=== PATIENT | male | born 1965 | race Caucasian/White ===

== ENCOUNTER 2017-09-07 11:20 | Emergency (ER) | payer OTHER ==
[2017-09-07] MEDS ORDERED: Ondansetron INJ* 2 MG/ML VIAL IV ONE (11:38)
[2017-09-07] MEDS ORDERED: Morphine VIAL* 4 MG/ML VIAL (1 ml vial) IV ONE ×2 (11:38→13:54)
[2017-09-07] MEDS ORDERED: Morphine INJ* 2 MG/ML 1 ML SYRINGE (TWO MG - NEW SYRINGE VERSION) ONE (11:58)
[2017-09-07] MEDS ORDERED: ceFAZolin 1 GM VIAL(*) 2 GM in NS 0.9% 100 ML* 100 ML IVPB ONE (12:02)
--- NOTE | 2017-09-07 12:12 | ED ---
Upper Extremity Pain - HPI Summary HPI Summary: [id number] patient presents with left finger/hand injury at about 11: 00 this morning. He reports he was at work when 2 pieces of machinery crushed his left index finger. His finger is mostly detached at the base with bleeding. He has no sensation in his index finger. His last tetanus shot was last year. No other injury to the hand or other fingers to report. Last PO intake was coffee at 1:30 this morning. Nothing else by mouth since including water. Patient has dentures in place Cardiac history: 2 MIs with stent placement 2009. No issues since. He currently takes "a blood pressure med" but does not take his lipid lowering medication nor anticoagulant (supposed to be taking but doesn't). Surgery was performed [address] Klein through [facility]. He currently follows with Dr. Hernandez through [facility]. 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 No previous issues with anesthesia. - History of Current Complaint Chief Complaint: EDLacSutureRecheck Stated Complaint: FINGER INJURY Time Seen by Provider: 09/07/17 11:27 Hx Obtained From: Patient - Allergies/Home Medications Allergies/Adverse Reactions: Allergies Allergy/AdvReac Type Severity Reaction Status Date / Time No Known Allergies Allergy Verified 09/07/17 11:28 PMH/Surg Hx/FS Hx/Imm Hx Previously Healthy: Yes Endocrine/Hematology History: Reports: Other Endocrine/Hematological Disorders - h/o obesity - lost 100 lbs - eats 1 meal a day - no surgery Denies: Hx Anticoagulant Therapy, Hx Blood Disorders Cardiovascular History: Reports: Hx Coronary Artery Disease - 2 stents placed 8 years ago, Hx Myocardial Infarction Respiratory History: Reports: Hx Sleep Apnea - uses CPAP nightly - Surgical History Surgery Procedure, Year, and Place: Stent placement 2009 - Immunization History Immunizations Up to Date: Yes Infectious Disease History: No Infectious Disease History: Denies: Traveled Outside the [place] in Last 30 Days - Social History Occupation: Employed Full-time - [employer] Alcohol Use: Weekly - most days of the week - couple beers a night when he does Hx Substance Use: No Substance Use Type: Reports: None Hx Tobacco Use: Yes Smoking Status (MU): Current Every Day Smoker Amount Used/How Often: 1/2 PPD Review of Systems Negative: Fatigue Negative: Chest Pain Negative: Shortness Of Breath Negative: Vomiting, Nausea Positive: no symptoms reported Positive: Decreased ROM, Edema Skin: Other - lac Positive: Numbness Psychological: Normal All Other Systems Reviewed And Are Negative: Yes Physical Exam Triage Information Reviewed: Yes Vital Signs On Initial Exam: Initial Vitals Temp Pulse Resp BP Pulse Ox 98.5 F 66 18 149/86 96 09/07/17 11:25 09/07/17 11:25 09/07/17 11:25 09/07/17 11:25 09/07/17 11:25 Vital Signs Reviewed: Yes Appearance: Positive: Well-Appearing, Pain Distress - appears mild at rest but he reports 10/10 and is visibly in pain with any finger manipulation/inspection involving palpation - pain is reported at base Skin: Positive: Warm - but cooler than other fingers - appears less perfused than other fingers (blueish) and cap refill> 2 secs; laceration about the base of the left index finger, just proximal to the MCP joint - this involves 3/4 of the skin around his finger (the only part still in place is that between his index and middle finger Head/Face: Positive: Normal Head/Face Inspection Eyes: Positive: EOMI ENT: Positive: Hearing grossly normal Respiratory/Lung Sounds: Positive: Breath Sounds Present Cardiovascular: Negative: Pulses are Symmetrical in both Upper and Lower Extremities - as above Musculoskeletal: Positive: Limited @ - Lt index MCP is deformed - appears crushed at the base; digit itself is angled towards ulna - can slightly wiggle/ flex at PIP joint but is very painful - cannot extend Neurological: Positive: Alert, Oriented to Person Place, Time, CN Intact II- III. Negative: Sensory/Motor Intact - sensation present over dorsal and ulnar aspect of finger - no sensation over palmar and radial aspects of finger Psychiatric: Positive: Normal Procedures - Splinting Left Upper Extremity Location: Left index finger Hand-Made Type: fiberglass Splint: volar Pre-Proc Neuro Vasc Exam: abnormal Post-Proc Neuro Vasc Exam: abnormal - blue, cap refill < 2 secs - Laceration/Wound Repair 1 Location: upper extremity - LEFT INDEX FINGER Description: Irregular Anesthesia: Lido - buffered w/ bicarb Length, Depth and Shape: circumvent base of index finger 3[address] Betadine Prep?: Yes Irrigated w/ Saline (ccs): 1,500 - sterile saline Laceration/Wound Explored: clean Closure: Single Layer Suture Type: Prolene - 5-0 Number of Sutures: 4 Layer Closure?: No Sterile Dressing Applied?: Yes - xeroform + kerlix - hemodynamically stable Diagnostics - Vital Signs Vital Signs Temp Pulse Resp BP Pulse Ox 09/07/17 11:25 98.5 F 66 18 149/86 96 - Laboratory Result Diagrams: 09/07/17 12:09 09/07/17 12:09 Lab Statement: Any lab studies that have been ordered have been reviewed, and results considered in the medical decision making process. Re-Evaluation - Re-Evaluation First Eval Change: Improved - pain improved s/p morphine - cap refill at 2 seconds from > 2 secs - color has improved some as well - lack of sensation same Second Eval Change: Worse - perfusion worse again, blueish, cap refill > 2 secs Course/Dx - Course Course Of Treatment: Pt here w/ crush injury 1 hour prior to arrival. Lack of swensatio in multuiple areas and grossly deformed/mostly decapitated. Discussed w/ Dr. Garcia, on-call, who cannot address this issue. We have no hand surgeons on today. Pre-op w/u initiated - ancef and IVF ordered. Pain control via morphine. XR reveals transverse angulated proximal phalange fracture. Spoke w / Dr. Moore, hand specialist at [facility] - will see pt today urgent but ambulance transfer not necessary - continue to remain NPO - go stright to clinic 4th floor , (purple). Requesting wash out w/ minimal pinning of skin to keep finger in place - volar splint. Discussed possibility of amputation w/ pt per Dr. Moore's request given his mechanism of injury (ie. crush). Pt will have his boss drive him down and agrees to remain NPO. Pain controlled prior to d/c. - Diagnoses Provider Diagnoses: Crushing injury of left index finger, Open fracture of phalanx of left index finger, Nerve damage, Decreased vascular flow Discharge - Sign-Out/Discharge Documenting (check all that apply): Patient Departure - Discharge Plan Condition: Stable Disposition: HOME-RECOMMEND TO ED Patient Education Materials: Crush Injury (ED) Referrals: No Primary Care Phys,NOPCP [Primary Care Provider] - Additional Instructions: DO not eat or drink until seen by Dr. Moore - go straight to his clinic after leaving the ED [facility] in [facility] 4th Floor (purple) - Billing Disposition and Condition Condition: STABLE Disposition: Home-Recommend to ED
[2017-09-07 12:23] LABS: ABS Basophils 0.1 10^3/ul (0-0.2); ABS Eosinophils 0.2 10^3/ul (0-0.6); ABS Lymphocytes 3.1 10^3/ul (1.0-4.8); ABS Monocytes 1.2 10^3/ul (0-0.8); ABS Neutrophils 7.5 10^3/ul (1.5-7.7); ABS Nucleated RBC 0 10^3/ul; Eosinophil % 1.5 % (0-6); Hematocrit 48 % (42-52); Hemoglobin 16.7 g/dl (14.0-18.0); Lymphocyte % 25.7 % (25-47); Mean Corpuscular HGB Conc 35 g/dl (31-36); Mean Corpuscular Hemoglobin 33 pg (27-31); Mean Corpuscular Volume 95 fL (80-94); Mean Platelet Volume 7.9 um3 (7.4-10.4); Nucleated Red Blood Cells % 0; Platelet Count 232 10^3/ul (150-450); Red Blood Count 5.01 10^6/ul (4.00-5.40); Red Cell Distribution Width 13 % (10.5-15)
--- NOTE | 2017-09-07 12:25 | RAD ---
HISTORY: Index finger injury COMPARISONS: None VIEWS: 4, Frontal, lateral, and oblique views of the left hand FINDINGS: BONE DENSITY: Normal. BONES: There is a transverse angulated fracture of the proximal phalanx of the second digit of the left hand. There is approximately 60 degrees of dorsal undulation. There is no significant displacement. JOINTS: There is no arthropathy. ALIGNMENT: There is no dislocation. SOFT TISSUES: Unremarkable. OTHER FINDINGS: None. IMPRESSION: TRANSVERSE ANGULATED FRACTURE OF THE SECOND DIGIT OF THE LEFT HAND.
[2017-09-07] MEDS ORDERED: ceFAZolin 2 GM PREMIX (*) 2 GM/50 ML BAG IVPB ONE (12:30)
[2017-09-07] MEDS ORDERED: NS 0.9% 1000 ML* 1,000 ML IV ONE (12:35)
[2017-09-07 12:41] LABS: INR 0.97 (0.77-1.02)
[2017-09-07 14:08] VITALS: BP 120/67
== END 2017-09-07 14:05 | disposition home health service (06) ==
LOC: ED 11:20
DX: S67.191A Crushing injury of left index finger, initial encounter (principal); S62.611B Displaced fracture of proximal phalanx of left index finger, initial encounter for open fracture; S64.491A Injury of digital nerve of left index finger, initial encounter; W31.9XXA Contact with unspecified machinery, initial encounter; Y92.9 Unspecified place or not applicable; I25.2 Old myocardial infarction; I25.10 Atherosclerotic heart disease of native coronary artery without angina pectoris; F17.200 Nicotine dependence, unspecified, uncomplicated; Z95.5 Presence of coronary angioplasty implant and graft
CPT/HCPCS: 12001; 36415; 80053; 85025; 85610; 85730; 86850; 86900; 86901; 93005; 96361; 96374; 96375; 99282; J0690; J2270; J2405